=== PATIENT | male | born 1995 | race American Indian/Alaskan Native ===

== ENCOUNTER 2022-01-09 00:18 | Emergency (ER) | payer SELFPAY ==
--- NOTE | 2022-01-09 03:33 | Emergency Department Report ---
ED Psych HPI - General Chief Complaint: Psych Stated Complaint: MH EVAL Time Seen by Provider: 01/09/22 03:26 Source: patient, police Mode of arrival: Ambulatory - History of Present Illness Initial Comments: 26-year-old male brought in by city police with suicidal and homicidal ideation after patient was seen holding knife around his family members. According to the police patient reported that the was trying to take away his kids and decided to drink 3 cups of bleach and 5 aspirin in an attempt to kill himself. No history of psychiatry diagnosis. When the police asked patient to drop the knife he told them to shoot him. No other modifying or associated factors. - Related Data Home Medications Medication Instructions Recorded Confirmed Last Taken Albuterol Mdi (or & Nicu Only) 2 puff IH QID PRN 06/20/15 06/20/15 06/07/15 08:00 [ProAir HFA Inhaler] Previous Rx's Medication Instructions Recorded Last Taken Type cephALEXin [Keflex] 500 mg PO Q8HR #21 cap 06/21/15 Unknown Rx Allergies Allergy/AdvReac Type Severity Reaction Status Date / Time No Known Allergies Allergy Verified 06/21/15 02:00 ED Review of Systems ROS: Stated complaint: MH EVAL Other details as noted in HPI Comment: All other systems reviewed and negative Psychiatric: homicidal thoughts, suicidal thoughts ED Past Medical Hx - Social History Smoking Status: Never Smoker Substance Use Type: None - Medications Home Medications: Home Medications Medication Instructions Recorded Confirmed Last Taken Type Albuterol Mdi (or & Nicu Only) 2 puff IH QID PRN 06/20/15 06/20/15 06/07/15 08:00 History [ProAir HFA Inhaler] cephALEXin [Keflex] 500 mg PO Q8HR #21 cap 06/21/15 Unknown Rx ED Physical Exam - General Limitations: No Limitations General appearance: alert, in no apparent distress - Head Head exam: Present: normal inspection - Eye Eye exam: Present: normal appearance Pupils: Present: normal accommodation - ENT ENT exam: Present: normal exam, normal orophraynx, mucous membranes moist - Neck Neck exam: Present: normal inspection - Respiratory Respiratory exam: Present: normal lung sounds bilaterally. Absent: respiratory distress, accessory muscle use - Cardiovascular Cardiovascular Exam: Present: regular rate, normal rhythm, normal heart sounds - GI/Abdominal GI/Abdominal exam: Present: soft, normal bowel sounds. Absent: tenderness - Extremities Exam Extremities exam: Present: normal inspection, normal capillary refill - Neurological Exam Neurological exam: Present: alert, oriented X3 - Psychiatric Psychiatric exam: Present: normal mood, anxious - Skin Skin exam: Present: warm, normal color ED Medical Decision Making - Medical Decision Making here with SI and HI -- will go ahead and rule out any organic medical cause-- by checking routine psych workup including UDS, CBC, CMP and UA with thyroid panel-- pt will be consulted for mental health for further evaluation and treatment . Critical care attestation.: If time is entered above; I have spent that time in minutes in the direct care of this critically ill patient, excluding procedure time. ED Disposition Clinical Impression: Suicide ideation, Homicidal ideation Disposition: 30 STILL A PATIENT Is pt being admited?: No Does the pt Need Aspirin: No Condition: Stable Referrals: PRIMARY CARE, [Primary Care Provider] - 3-5 Days
[2022-01-09 04:43] LABS: Basophils # (Auto) 0.1 K/mm3 (0.0-0.1); Basophils % (Auto) 0.7 % (0.0-1.8); Eosinophils # (Auto) 0.3 K/mm3 (0.0-0.4); Eosinophils % (Auto) 2.9 % (0.0-4.3); Hematocrit 43.8 % (35.5-45.6); Lymphocytes # (Auto) 1.9 K/mm3 (1.2-5.4); Lymphocytes % (Auto) 21.3 % (13.4-35.0); Mean Corpuscular HGB Conc 34 % (32-34); Mean Corpuscular Volume 99 fl (84-94); Monocytes # (Auto) 0.5 K/mm3 (0.0-0.8); Monocytes % (Auto) 5.7 % (0.0-7.3); Platelet Count 211 K/mm3 (140-440); Red Blood Count 4.41 M/mm3 (3.65-5.03); Red Cell Distribution Width 12.6 % (13.2-15.2)
[2022-01-09 04:44] LABS: Alanine Aminotransferase 55 units/L (7-56); Albumin 4.6 g/dL (3.9-5); BUN/Creatinine Ratio 9; Blood Urea Nitrogen 10 mg/dL (9-20); Calcium 9.1 mg/dL (8.4-10.2); Hemolysis Index 8
[2022-01-09 12:35] LABS: Bilirubin,Urine SM (Negative); Blood,Urine NEG (Negative); Color,Urine Amber (Yellow)
[2022-01-09 12:43] LABS: Mucus,Urine 3+ /HPF
[2022-01-09 12:44] LABS: Amphetamine Screen,Urine Negative; Benzodiazepines Screen,Urine Negative; Cannabinoid Screen,Urine Negative; Cocaine Screen,Urine Negative; Methadone Screen,Urine Negative; Opiate Screen,Urine Negative
[2022-01-09 12:55] LABS: Ictotest,Urine Negative (Negative)
--- NOTE | 2022-01-09 13:38 | Consultation ---
History of Present Illness - Reason for Consult Consult date: 01/09/22 Reason for consult: suicidal attempt, depression - History of Present Psychiatric Illness HPI: 26-year-old male brought in by city police with suicidal and homicidal ideation after patient was seen holding knife around his family members. According to the police patient reported that the was trying to take away his kids and decided to drink 3 cups of bleach and 5 aspirin in an attempt to kill himself. No history of psychiatry diagnosis. When the police asked patient to drop the knife he told them to shoot him. No other modifying or associated factors. The patient was seen today. He is calm and cooperative. He is not upfront and doesn't tell me the story depicted in HPI. The patient did says he attempted suicide by "mixing pills with bleach and alcohol." He says he's going through a lot. He says he lost his job, because he simply asked them if they minded reducing his hours. 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 He says he and his mom don't get along. The patient says drinks a small glass of alcohol that he "sips on." He denies it being a problem, but says his family says his drinking is a problem. He denies being on any psych meds, but states he was diagnosed with depression when he was a kid. He denies illicit drug use. He states he uses tobacco. The patient is concerned about being admitted. 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 Will start medication and recommend acute psychiatric inpatient treatment PAST PSYCHIATRIC HISTORY: Diagnoses: Depression Suicide attempts or Self-harm behavior: Denies Prior psychiatric hospitalizations: Denies Substance Abuse history: tobacco Previous psychiatric medications tried: Denies Outpatient treatment: Denies PAST MEDICAL HISTORY: Denies Family Psychiatric History: None reported or documented SOCIAL HISTORY Marital Status: Single Living Arrangements: Lives with mom Employment Status: Self employed Access to guns/weapons: Denies Education: some college History of Abuse:Denies Legal History: Denies REVIEW OF SYSTEMS Constitutional: Negative for weight loss ENT: Negative for stridor Respiratory: Negative for cough or hemoptysis All other systems reviewed and are negative MENTAL STATUS EXAMINATION General Appearance and Behavior: Age appropriate, wearing appropriate clothes, cooperative, polite with questioning, good eye contact Cooperation: cooperative Psychomotor Behavior: Psychomotor normal Mood: Depressed Affect and affective range: congruent with stated mood Thought Process: Goal directed Thought Content: Reality oriented Speech: Normal volume, Regular rate and rhythm Suicidal Ideation: Yes Homicidal Ideation: Denies Hallucination: Denies Delusions: None elicited Impulse Control: Limited Insight and Judgment: Limited Memory: Intact Attention:attentive Orientation: Alert and oriented Diagnoses: Major depressive disorder Treatment Plan 1013 Lexapro 5mg po daily Doxepin 10mg po qhs CIWA Sitter: defer to primary Medical: per primary Disposition: Recommend acute psychiatric inpatient treatment Will follow. Thanks Case staffed with Dr. Armstrong Medications and Allergies Allergies Allergy/AdvReac Type Severity Reaction Status Date / Time No Known Allergies Allergy Verified 06/21/15 02:00 Home Medications Medication Instructions Recorded Confirmed Last Taken Type Albuterol Mdi (or & Nicu Only) 2 puff IH QID PRN 06/20/15 06/20/15 06/07/15 08:00 History [ProAir HFA Inhaler] cephALEXin [Keflex] 500 mg PO Q8HR #21 cap 06/21/15 Unknown Rx Mental Status Exam - Vital signs Last Vital Signs Temp Pulse Resp BP 106/65 01/09/22 10:30 Pulse Ox 96 01/09/22 10:30 Results Result Diagrams: 01/09/22 03:44 01/09/22 03:44 Abnormal lab results 01/09/22 01/09/22 01/09/22 Range/Units 03:44 03:44 03:44 MCV 99 H (84-94) fl MCH 34 H (28-32) pg RDW 12.6 L (13.2-15.2) % Potassium 3.5 L (3.6-5.0) mmol/L AST 64 H (5-40) units/L Ur Specific [place] (1.003-1.030) Salicylates < 0.3 L (2.8-20.0) mg/dL Acetaminophen (10.0-30.0) ug/mL 01/09/22 01/09/22 Range/Units 03:44 09:51 MCV (84-94) fl MCH (28-32) pg RDW (13.2-15.2) % Potassium (3.6-5.0) mmol/L AST (5-40) units/L Ur Specific [place] 1.035 H (1.003-1.030) Salicylates (2.8-20.0) mg/dL Acetaminophen 5.0 L (10.0-30.0) ug/mL All other labs normal.
[2022-01-09] MEDS ORDERED: ESCITALOPRAM 10 MG TAB PO SCH (15:00)
[2022-01-09] MEDS ORDERED: LORazepam 2 MG/ML VIAL IV PRN (15:00)
[2022-01-09] MEDS ORDERED: chlordiazePOXIDE 25 MG CAP PO PRN (15:00)
[2022-01-09] MEDS ORDERED: DOXEPIN 10 MG CAP PO SCH (22:00)
[2022-01-10 07:35] VITALS: BP 113/66
== END 2022-01-10 12:18 | disposition still patient (30) ==
LOC: ED 00:18 → EEVIPCON 00:18 → ED 01-10 12:18
DX: R45.851 Suicidal ideations (principal); R45.850 Homicidal ideations; Z79.899 Other long term (current) drug therapy
CPT/HCPCS: 36415; 80053; 80307; 80320; 81001; 85025; 99285; G0480